=== PATIENT | male | born 1980 | race Caucasian/White ===

== ENCOUNTER 2019-08-02 09:40 | Emergency (ER) | payer OTHER ==
[~2019-08-02] VITALS: Ht 182.9 cm; Wt 104.3 kg
[2019-08-02] MEDS ORDERED: TYLENOL WITH CO1 TA1 PO (11:02)
[2019-08-02] MEDS ORDERED: NAPROSYN500 MG PO (11:02)
[2019-08-02] MEDS ORDERED: LIDODERM1 EACH TRANSDERM (11:02)
[2019-08-02 11:38] VITALS: BP 141/80
== END 2019-08-02 11:39 | disposition home or self-care (01) ==
LOC: M.ERS 09:40
DX: M25.512 Pain in left shoulder (principal)